=== PATIENT | male | born 1955 | race Caucasian/White ===

== ENCOUNTER 2017-10-03 09:30 | Day surgery (SDC) | payer MEDICAID ==
[2017-10-02 14:40] VITALS: BMI 31.3
[2017-10-03] MEDS ORDERED: Propofol 10 mg/ml Inj (20 ML) ONE (11:52)
[2017-10-03] MEDS ORDERED: Simethicone 40 mg/0.6 ml Liquid (30 ml) ONE (12:05)
[2017-10-03 12:44] VITALS: TEMP 98.5; O2SAT 100
[2017-10-03 14:16] VITALS: BP 110/77; PULSE 65; RESP 14
== END 2017-10-03 14:00 | disposition home or self-care (01) ==
LOC: C.ENDO 09:30
PROVIDERS: ATTEND Internal Medicine Gastroenterology
DX: D12.2 Benign neoplasm of ascending colon (principal); K64.8 Other hemorrhoids; K57.90 Diverticulosis of intestine, part unspecified, without perforation or abscess without bleeding
CPT/HCPCS: 45388; 88305; J2001; J2704